=== PATIENT | male | born 1960 | race Caucasian/White ===

== ENCOUNTER 2018-06-07 10:54 | Outpatient (REF) | payer OTHER, SELFPAY ==
[2018-06-07 13:13] LABS: ALT 48 U/L (12-78); AST 29 U/L (15-37); Albumin 4.2 g/dL (3.4-5.0); Alkaline Phosphatase 75 U/L (46-116); Anion Gap 8.5 mmol/L (3-11); BUN 13 mg/dL (7-18); Bilirubin, Total 0.5 mg/dL (0.2-1.0); CO2 28.5 mmol/L (21.0-32.0); Calcium 9.6 mg/dL (8.5-10.1); Chloride 101 mmol/L (98-107); Glucose 102 mg/dL (70-100); Potassium 4.7 mmol/L (3.5-5.1); Sodium 138 mmol/L (136-145); Total Protein 7.7 g/dL (6.4-8.2)
[2018-06-08 11:21] LABS: Hepatitis C Ab w Rflx HCV PCR Negative (NEGAT)
== END 2018-06-07 11:14 ==
LOC: NCHCN 10:54
PROVIDERS: PCP Nurse Practitioner Family; Visit Provider Nurse Practitioner Family
DX: Z00.00 Encounter for general adult medical examination without abnormal findings (principal); I10 Essential (primary) hypertension; Z11.59 Encounter for screening for other viral diseases
CPT/HCPCS: 80053; 86803

== ENCOUNTER 2019-12-05 10:07 | Outpatient (REF) | payer BC, SELFPAY ==
[2019-12-05 20:28] LABS: ALT 50 U/L (16-63); AST 30 U/L (15-37); Albumin 4.2 g/dL (3.4-5.0); Alkaline Phosphatase 83 U/L (46-116); Anion Gap 5.8 mmol/L (3-11); BUN 11 mg/dL (7-18); Bilirubin, Total 0.3 mg/dL (0.2-1.0); CO2 29.2 mmol/L (21.0-32.0); CREATININE 1.03 mg/dL (0.70-1.30); Calcium 9.2 mg/dL (8.5-10.1); Chloride 103 mmol/L (98-107); Glucose 100 mg/dL (74-106); Potassium 4.7 mmol/L (3.5-5.1); Sodium 138 mmol/L (136-145); Total Protein 7.5 g/dL (6.4-8.2)
== END 2019-12-05 10:27 ==
LOC: NCHCN 10:07
PROVIDERS: PCP Nurse Practitioner Family; Visit Provider Nurse Practitioner Family
DX: I10 Essential (primary) hypertension (principal)
CPT/HCPCS: 80053

== ENCOUNTER 2020-07-27 10:58 | Outpatient (CLI) | payer BC, SELFPAY ==
[2020-07-30 22:46] LABS: COVID-19 RT-PCR Result Positive (Negative)
== END 2020-07-27 11:18 ==
PROVIDERS: PCP Nurse Practitioner Family; Visit Provider Nurse Practitioner Family
DX: J06.9 Acute upper respiratory infection, unspecified (principal)
CPT/HCPCS: U0003

== ENCOUNTER 2020-12-10 08:22 | Outpatient (REF) | payer BC, SELFPAY ==
[2020-12-10 14:20] LABS: ALT 59 U/L (16-63); AST 34 U/L (15-37); Albumin 4.3 g/dL (3.4-5.0); Alkaline Phosphatase 76 U/L (46-116); Anion Gap 8.2 mmol/L (3-11); BUN 15 mg/dL (7-18); Bilirubin, Direct 0.1 mg/dL (0.0-0.2); Bilirubin, Total 0.4 mg/dL (0.2-1.0); CO2 28.8 mmol/L (21.0-32.0); CREATININE 1.1 mg/dL (0.70-1.30); Calcium 9.4 mg/dL (8.5-10.1); Chloride 104 mmol/L (98-107); Creatine Kinase 442 U/L (39-308); Glucose 105 mg/dL (74-106); Potassium 5.3 mmol/L (3.5-5.1); Sodium 141 mmol/L (136-145); Total Protein 7.8 g/dL (6.4-8.2)
== END 2020-12-10 08:23 | disposition home or self-care (01) ==
LOC: NCHCN 08:22
PROVIDERS: PCP Nurse Practitioner Family; Visit Provider Nurse Practitioner Family
DX: I10 Essential (primary) hypertension (principal)
CPT/HCPCS: 80053; 80076; 82550

== ENCOUNTER 2020-12-24 10:22 | Outpatient (REF) | payer BC, SELFPAY ==
[2020-12-24 13:51] LABS: BUN 12 mg/dL (7-18); Calcium 9.5 mg/dL (8.5-10.1); Chloride 104 mmol/L (98-107); Creatine Kinase 341 U/L (39-308); Glucose 104 mg/dL (74-106); Potassium 5.1 mmol/L (3.5-5.1); Sodium 140 mmol/L (136-145)
== END 2020-12-24 10:23 | disposition home or self-care (01) ==
LOC: NCHCN 10:22
PROVIDERS: PCP Nurse Practitioner Family; Visit Provider Nurse Practitioner Family
DX: E87.5 Hyperkalemia (principal); R74.8 Abnormal levels of other serum enzymes
CPT/HCPCS: 80048; 82550

== ENCOUNTER 2021-01-21 11:00 | Outpatient (REF) | payer BC, SELFPAY ==
[2021-01-21 15:29] LABS: Calculated LDL 136 mg/dL (<100); Cholesterol 226 mg/dL (<200); HDL Cholesterol 28 mg/dL (40-60); Triglyceride 312 mg/dL (<150)
[2021-01-23 08:29] LABS: Creatine Kinase 244 U/L (39 - 308)
[2021-01-24 13:41] LABS: BB Fraction 1 % (0); MB Fraction 0 % (0); MM Fraction 99 % (100)
== END 2021-01-21 11:01 | disposition home or self-care (01) ==
LOC: NCHCN 11:00
PROVIDERS: PCP Nurse Practitioner Family; Visit Provider Nurse Practitioner Family
DX: E78.5 Hyperlipidemia, unspecified (principal); R74.8 Abnormal levels of other serum enzymes; I10 Essential (primary) hypertension; K30 Functional dyspepsia; E66.9 Obesity, unspecified
CPT/HCPCS: 80061; 82550; 82552

== ENCOUNTER 2021-03-04 13:20 | Outpatient (REF) | payer BC, SELFPAY ==
[2021-03-04 13:44] LABS: ALT 38 U/L (16-63); AST 27 U/L (15-37); Albumin 4.3 g/dL (3.4-5.0); Alkaline Phosphatase 74 U/L (46-116); Anion Gap -0.5 mmol/L (3-11); BUN 15 mg/dL (7-18); Bilirubin, Total 0.4 mg/dL (0.2-1.0); CO2 30.5 mmol/L (21.0-32.0); CREATININE 1.1 mg/dL (0.70-1.30); Calcium 9.4 mg/dL (8.5-10.1); Calculated LDL 106 mg/dL (<100); Chloride 106 mmol/L (98-107); Cholesterol 195 mg/dL (<200); Glucose 106 mg/dL (74-106); HDL Cholesterol 29 mg/dL (40-60); Potassium 4.8 mmol/L (3.5-5.1); Sodium 136 mmol/L (136-145); Total Protein 7.6 g/dL (6.4-8.2); Triglyceride 303 mg/dL (<150)
[2021-03-04 14:02] LABS: Creatine Kinase 237 U/L (39-308)
== END 2021-03-04 13:21 | disposition home or self-care (01) ==
LOC: NCHCN 13:20
PROVIDERS: PCP Nurse Practitioner Family; Visit Provider Nurse Practitioner Family
DX: E78.5 Hyperlipidemia, unspecified (principal); I10 Essential (primary) hypertension
CPT/HCPCS: 80053; 80061; 82550

== ENCOUNTER 2021-04-08 08:00 | Outpatient (REF) | payer BC, SELFPAY ==
[2021-04-08 17:58] LABS: Calculated LDL 128 mg/dL (<100); Cholesterol 209 mg/dL (<200); HDL Cholesterol 31 mg/dL (40-60); Triglyceride 251 mg/dL (<150)
== END 2021-04-08 08:01 | disposition home or self-care (01) ==
LOC: NCHCN 08:00
PROVIDERS: PCP Nurse Practitioner Family; Visit Provider Nurse Practitioner Family
DX: E78.5 Hyperlipidemia, unspecified (principal)
CPT/HCPCS: 80061

== ENCOUNTER 2022-05-26 10:25 | Outpatient (REF) | payer BC, SELFPAY ==
[2022-05-26 16:45] LABS: ALT 45 U/L (16-63); AST 32 U/L (15-37); Albumin 4.5 g/dL (3.4-5.0); Alkaline Phosphatase 77 U/L (46-116); Anion Gap 10.2 mmol/L (3-11); BUN 13 mg/dL (7-18); Bilirubin, Total 0.6 mg/dL (0.2-1.0); CO2 26.8 mmol/L (21.0-32.0); CREATININE 0.9 mg/dL (0.70-1.30); Calcium 9.4 mg/dL (8.5-10.1); Calculated LDL 123 mg/dL (<100); Chloride 102 mmol/L (98-107); Cholesterol 200 mg/dL (<200); Estimated GFR 97.17 (mL/min/1.73m2); Glucose 93 mg/dL (74-106); HDL Cholesterol 37 mg/dL (40-60); Potassium 4.4 mmol/L (3.5-5.1); Sodium 139 mmol/L (136-145); Triglyceride 202 mg/dL (<150)
[2022-05-26 17:11] LABS: Creatine Kinase 255 U/L (39-308)
[2022-05-26 23:57] LABS: PSA, Screening 1.5 ng/mL (<=4.5)
== END 2022-05-26 10:26 | disposition home or self-care (01) ==
LOC: NCHCN 10:25
PROVIDERS: PCP Nurse Practitioner Family; Visit Provider Nurse Practitioner Family
DX: I10 Essential (primary) hypertension (principal); E78.5 Hyperlipidemia, unspecified; R74.8 Abnormal levels of other serum enzymes; K30 Functional dyspepsia; G47.62 Sleep related leg cramps; F52.21 Male erectile disorder; R35.0 Frequency of micturition; Z12.5 Encounter for screening for malignant neoplasm of prostate
CPT/HCPCS: 80053; 80061; 82550; 84153

== ENCOUNTER 2023-08-04 15:02 | Outpatient (REF) | payer BC, SELFPAY ==
[2023-08-04 15:26] LABS: ALT 47 U/L (16-63); AST 29 U/L (15-37); Albumin 4.4 g/dL (3.4-5.0); Alkaline Phosphatase 71 U/L (46-116); Anion Gap 7.1 mmol/L (3-11); BUN 14 mg/dL (7-18); Bilirubin, Total 0.6 mg/dL (0.2-1.0); CO2 29.9 mmol/L (21.0-32.0); Calcium 9.5 mg/dL (8.5-10.1); Calculated LDL 103 mg/dL (<100); Chloride 100 mmol/L (98-107); Cholesterol 207 mg/dL (<200); Glucose 99 mg/dL (74-106); HDL Cholesterol 36 mg/dL (40-60); Potassium 4.3 mmol/L (3.5-5.1); Sodium 137 mmol/L (136-145); Total Protein 7.9 g/dL (6.4-8.2); Triglyceride 342 mg/dL (<150)
[2023-08-04 16:20] LABS: Creatine Kinase 180 U/L (39-308)
[2023-08-04 22:07] LABS: PSA, Diagnostic 1.7 ng/mL (<=4.5)
== END 2023-08-04 15:03 | disposition home or self-care (01) ==
LOC: NCHCN 15:02
PROVIDERS: PCP Nurse Practitioner Family; Visit Provider Nurse Practitioner Family
DX: I10 Essential (primary) hypertension (principal); R35.0 Frequency of micturition
CPT/HCPCS: 80053; 80061; 82550; 84153

== ENCOUNTER 2024-05-27 06:48 | Day surgery (SDC) | payer BC, SELFPAY ==
--- NOTE | 2024-05-26 19:18 | PDOC.DSDIS_ITS ---
Date of service: 05/27/24 Time of Service: 08:41 Discharge Plan Disposition Patient Disposition: Home Condition: Good Discharge Details Reason For Visit: screening colonoscopy Attending Provider: Suresh Stephens Primary Care Provider: Matilde Valderrama Home Meds and New Rx's Prescriptions: Continued omeprazole magnesium [Prilosec OTC] 20 mg tablet,delayed release (DR/EC) 20 mg PO PRN PRN lisinopril 10 MG tablet 40 mg PO DAILY pravastatin 40 mg tablet 40 mg PO DAILY amlodipine 10 mg tablet 10 mg PO DAILY Discontinued polyethylene glycol 3350 17 gram/dose powder 238 g PO ONCE Qty: 238 0RF Rx Instructions: take per colonoscopy instructions bisacodyl [Dulcolax (bisacodyl)] 5 mg tablet,delayed release (DR/EC) 5 mg PO ONCE Qty: 4 0RF Rx Instructions: take per colonoscopy instructions No Action bisacodyl 5 mg tablet,delayed release (DR/EC) PO polyethylene glycol 3350 [ClearLax] 17 gram/dose powder Discharge Instructions Instructions: Diverticulosis Additional Instructions: Balwinder, it was pleasure meeting you today, and I hope you are comfortable during the colonoscopy. Everything went very smoothly. Your prep was excellent negati ve everything totally fine. I did not see any signs of tumors or polyps during the test. Incidentally, you do have a tiny bit of diverticulosis. Diverticula are the individual little weak spots that occur in the colon wall. They are typically described as pockets or pouches. The best approach to take care of them is to stay well-hydrated, maintain a diet that is rich in fiber, and well-balanced, and avoid symptoms of constipation. I will attach a little bit of information here about diverticulosis in general, but it does not really seem to be at anything at all that you need to worry about. With a negative colonoscopy today, he will be good for 10 years. 1. If tolerated, consume a soft, low fiber diet for 1-2 days. 2. Do not drive, drink alcohol, operate machinery, make critical decisions, or do activities that require coordination or balance for 24 hours. 3. Because air was put into your colon during the procedure, expelling air from your rectum (passing gas or farting) is normal. 4. You may not have a bowel movement for 1-3 days because of the colonoscopy prep. This is normal. 5. Go directly to the emergency room if you notice any of the following: Develop chills (warm to touch), or if you have a thermometer and your temperature is above 101 Difficulty breathing or difficultly swallowing Persistent vomiting Severe abdominal pain, other than gas cramps Severe chest pain Black, tarry stools Any bleeding ? exceeding one tablespoon 6. Call your physician if the site where your intravenous was started becomes red, swollen, painful, and warm to touch. 7. Your physician has reviewed your pre-procedure medications. Please continue to take those medications as previously ordered. You will be given specific information/education regarding any changes to your medications before leaving. Activity:: Activity as Tolerated Diet:: As Tolerated Discharge Orders Discharge Orders: Discharge Order (Routine); Ordered 05/26/24 Ordered By: Suresh Stephens DS: Diagnosis Discharge Diagnosis (1) Encounter for screening colonoscopy: Status: Acute Asessment and Plan: Diverticulosis; otherwise negative colonoscopy. Follow-up in 10 years
--- NOTE | 2024-05-26 19:19 | COLE_ITS ---
Date of service: 05/27/24 Time of Service: 08:42 Colonoscopy Report Date of procedure: 05/27/24 Pre-op diagnosis general: screening colonoscopy Post-op diagnosis procedure note: other (Diverticulosis) Procedure: colonoscopy Surgeon: Suresh Stephens Anesthesia Type: General:No Airway Estimated blood loss (mL): 0 Pathology: none sent Complications: None Disposition: same day Indications: Mauri is a 64 year old man who needs a screening colonoscopy Prep: Miralax/Dulcolax Procedure Start Time: 08:23 Procedure End Time: 08:36 Retraction Time: 7 Findings: Scant sigmoid diverticulosis Procedure Description: After the induction of anesthesia, and with the patient in left lateral decubitus position, I began by performing an external anorectal exam.? Perineum and skin were normal, as was the anal verge.? There was no evidence of external hemorrhoids.? Next, I performed a digital rectal exam.? I did not appreciate any abnormal findings.? Next, I advanced a colonoscope into the rectal vault.? I performed retroflexion.? This appeared normal.? Using insufflation, I then advanced the colonoscope beyond the rectal folds and into the sigmoid colon before advancing towards the cecum.? The quality of the prep was outstanding.? The scope was noted to be in the cecum by identification of the ileocecal valve and appendiceal orifice.? I then began withdrawing the colonoscope using repeated irrigation as necessary for full evaluation of the colonic mucosa. There were some occasional sigmoid diverticuli. Once the scope was withdrawn to the level of the rectum, great care was taken to examine portions of the rectal folds.? Finally, the scope was withdrawn and the patient was brought to the same-day surgery recovery unit as the anesthetic wore off. ?The findings and instructions were shared with the patient prior to discharge. [place] Bowel Prep [place] Bowel Prep Right Colon: 3 Left Colon: 3 Transverse Colon: 3 Total Score: 9
[2024-05-27 07:24] VITALS: BP 122/88; PULSE 72; RESP 16; TEMP 36.4; O2SAT 99
[2024-05-27] MEDS: Lactated Ringers 1,000 ML 80 ML IV (07:32)
--- NOTE | 2024-05-27 07:38 | ANES.PREOP_ITS ---
General Info Date of Service Date Performed: 05/27/24 Height: 6 ft Weight: 104.9 kg Body Mass Index (BMI): 31.4 Surgical Procedure: Operation Date: 05/27/24 08:20 Proposed Procedure Side Surgeon ned Stephens MD Meds Allergies and Home Medications Allergies Allergy/AdvReac Type Severity Reaction Status Date / Time Penicillins Allergy Severe Anaphylaxsi Unverified 05/27/24 07:14 s sulfamethoxazole (From Allergy Severe Skin Rash Unverified 05/27/24 07:14 Bactrim) trimethoprim (From Bactrim) Allergy Severe Skin Rash Unverified 05/27/24 07:14 Home Medication ?Medication ?Instructions ?Recorded lisinopril 10 mg tablet 40 mg PO DAILY 09/27/13 amlodipine 10 mg tablet 10 mg PO DAILY 04/04/24 pravastatin 40 mg tablet 40 mg PO DAILY 04/04/24 omeprazole magnesium 20 mg 20 mg PO PRN PRN 05/23/24 tablet,delayed release (Prilosec OTC) bisacodyl 5 mg tablet,delayed mg PO 05/27/24 release polyethylene glycol 3350 17 g 05/27/24 gram/dose oral powder (ClearLax) Current Visit Medications: Current Medications Generic Name Dose Route Start Last Admin Trade Name Freq PRN Reason Stop Dose Admin Hyoscyamine Sulfate 0.125 mg 05/26/24 19:21 Hyoscyamine 0.125 Mg Sl/Oral/Chew SL 06/25/24 19:20 DIRECTED PRN Ringer's Solution 1,000 mls @ 80 mls/hr 05/27/24 06:00 05/27/24 07:32 IV 06/25/24 23:59 80 mls/hr INFUSION KYARA Administration IV Miscellaneous Supplies 1 each 05/27/24 06:00 Iv Access IV 06/25/24 23:59 DIRECTED KYARA Ondansetron HCl 4 mg 05/26/24 19:21 Ondansetron 4 Mg/2 Ml Vial IVP 06/25/24 19:20 Q4H PRN PRN Nausea / Vomiting Sodium Chloride 0 ml 05/27/24 06:00 Normal Saline Flush 10 Ml Syr IV 06/25/24 23:59 PRN PRN Sodium Chloride 0 ml 05/27/24 06:00 Normal Saline 10 Ml Vial IJ 06/25/24 23:59 DIRECTED PRN Sterile Water 0 ml 05/27/24 06:00 Water,Injection,Sterile 10 Ml Vial IJ 06/25/24 23:59 DIRECTED PRN PFSH Active Problems Active Problems: Problem Status Onset Code Encounter for screening colonoscopy Acute Z12.11 MUCKLESHOOT (hard of hearing) Acute H91.90 Medical History Medical History Bilateral hearing loss Erectile dysfunction Obesity Abdominal pain Hyperlipidemia Essential hypertension Surgical History Surgical History History of surgery trauma r/t chain saw injury left. History of colonoscopy Tobacco Smoking/Tobacco Use Status: Former Tobacco Use Alcohol Alcohol Intake: current Alcohol intake frequency: holidays/special occasions only Substance Use Substance use: Never Substance use type: does not use Vital Signs and Lab Results Vital Signs Most Recent Vital Signs in EMR: Most Recent Vital Signs Temp Pulse Resp BP Pulse Ox 36.4 C L 72 16 122/88 99 05/27/24 07:24 05/27/24 07:24 05/27/24 07:24 05/27/24 07:24 05/27/24 07:24 Lab Results Blood Type / Crossmatch: No Data to Display Complete Blood Count: No Data to Display Complete Metabolic Panel: No Data to Display Liver Function Panel: No Data to Display Coagulation Panel: No Data to Display Cardiac Panel: No Data to Display Arterial Blood Gas: No Data to Display Venous Blood Gas: No Data to Display Pancreas Panel: No Data to Display Thyroid Panel: No Data to Display Infectious Disease: No Data to Display Blood Cultures: No Data to Display Toxicology Panel: No Data to Display Anesthesia Assessment and Plan Anesthesia History Personal History: No History of Anesthesia Complications Family History: No Family History of Anesthesia Complications Exercise Tolerance Exercise Tolerance: Metabolic Equivalents>4 Cardiac & Pulmonary Exam Cardiac Exam: Normal S1/S2 Heart Sounds Pulmonary Exam: Clear Bilateral Breath Sounds Implantable Cardiac Device Does patient have a Pacemaker or an ICD?: No Airway Exam Known Difficult Airway: No Mallampati Class: 3 Mouth Opening: Narrow (< 3cm) Thyromental Distance: Less than 3 cm Neck Range of Motion: Limited ROM Neck Circumference: Thick Teeth Condition: Normal Dentition ASA Classification ASA Score: ASA 2 Emergency Case?: No NPO Status NPO Status: NPO Clears >2 hours, Solids >8 hours Anesthesia Plan Resuscitation Status: Full Code Anesthesia Technique: General Anesthesia Airway Planned: Natural Airway Monitors Used: Standard Monitors Preoperative Comments:: 64 yo male for screening colo. Sig PMHx: HTN (lisinopril, amlodipine. Well controlled, 128/80s at home), GERD (omeprazole. takes once a week. feels good today), MUCKLESHOOT, former smoker, occ EtOH.
[2024-05-27 07:41] VITALS: BMI 31.4
[2024-05-27 08:41] VITALS: BP 106/84; PULSE 75; RESP 18; TEMP 36.6; O2SAT 95
[2024-05-27 09:00] VITALS: BP 122/88; PULSE 68; RESP 18; TEMP 36.5; O2SAT 96
--- NOTE | 2024-05-27 09:28 | W.ANESPOSTOP ---
Postoperative Evaluation Date, Time and Location Date Performed: 05/27/24 Time Performed: 09:00 Patient Location: Day Surgery Unit Vital Signs Most Recent Imported Vital Signs: Most Recent Vital Signs Temp Pulse Resp BP Pulse Ox 36.5 C 68 18 122/88 96 05/27/24 09:00 05/27/24 09:00 05/27/24 09:00 05/27/24 09:00 05/27/24 09:00 Pain Score Most Recent Pain Score: Most Recent Pain Score Pain Level 0 05/27/24 09:00 Assessment Mental Status: Awake (Alert & Oriented to Patient Baseline) Airway and Respiratory Function: Patent airway with normal (patient baseline) respiratory exam Cardiovascular Function: Hemodynamically Stable Hydration Status: Adequately Hydrated Nausea & Vomiting: No Nausea or Vomiting Pain: Pt. Denies Any Pain Peripheral Nerve Block: Patient did not receive a nerve block
== END 2024-05-27 09:05 | disposition home or self-care (01) ==
LOC: SUR 06:48
PROVIDERS: PCP Nurse Practitioner Family; Visit Provider Surgery
PROC: 0DJD8ZZ Inspection of Lower Intestinal Tract, Via Natural or Artificial Opening Endoscopic (ICD-10-PCS; CPT 45378; principal; 2024-05-27 08:15)
DX: Z12.11 Encounter for screening for malignant neoplasm of colon (principal); K57.30 Diverticulosis of large intestine without perforation or abscess without bleeding; I10 Essential (primary) hypertension; K21.9 Gastro-esophageal reflux disease without esophagitis; Z87.891 Personal history of nicotine dependence
CPT/HCPCS: 45378; J2704

== ENCOUNTER 2024-08-05 11:52 | Outpatient (CLI) | payer BC, SELFPAY ==
[2024-08-05 09:32] LABS: ALT 35 U/L (16-63); AST 24 U/L (15-37); Alkaline Phosphatase 89 U/L (46-116); Anion Gap 4.7 mmol/L (3-11); BUN 15 mg/dL (7-18); Bilirubin, Total 0.39 mg/dL (0.2-1.0); CO2 31.3 mmol/L (21.0-32.0); CREATININE 1.1 mg/dL (0.70-1.30); Calcium 9.2 mg/dL (8.5-10.1); Calculated LDL 133 mg/dL (<100); Chloride 104 mmol/L (98-107); Cholesterol 215 mg/dL (<200); Estimated GFR 75.43 (mL/min/1.73m2); Glucose 115 mg/dL (74-106); HDL Cholesterol 44 mg/dL (40-60); Potassium 4.9 mmol/L (3.5-5.1); Sodium 140 mmol/L (136-145); Total Protein 7.9 g/dL (6.4-8.2); Triglyceride 194 mg/dL (<150)
[2024-08-05 09:45] LABS: Creatine Kinase 115 U/L (39-308)
[2024-08-05 18:07] LABS: PSA, Screening 2.6 ng/mL (<=4.5)
== END 2024-08-05 11:53 | disposition home or self-care (01) ==
LOC: LBO 11:53
PROVIDERS: PCP Nurse Practitioner Family; Visit Provider Nurse Practitioner Family
DX: I10 Essential (primary) hypertension (principal); E78.5 Hyperlipidemia, unspecified
CPT/HCPCS: 36415; 80053; 80061; 82550; 84153

== ENCOUNTER 2025-06-26 09:23 | Outpatient (REF) | payer BC, SELFPAY ==
[2025-06-26 15:45] LABS: ALT 42 U/L (10-49); AST 33 U/L (<34); Albumin 4.8 g/dL (3.4-5.0); Alkaline Phosphatase 84 U/L (46-116); Anion Gap 9.4 mmol/L (3-11); BUN 15 mg/dL (9-23); Bilirubin, Total 0.40 mg/dL (0.2-1.2); CO2 27.6 mmol/L (20.0-31.0); Calcium 9.8 mg/dL (8.3-10.6); Chloride 104 mmol/L (98-107); Cholesterol 203 mg/dL (<200); Glucose 97 mg/dL (74-106); HDL Cholesterol 48 mg/dL (>40); Potassium 4.6 mmol/L (3.5-5.1); Sodium 141 mmol/L (136-145); Total Protein 7.9 g/dL (5.7-8.2)
[2025-06-26 21:37] LABS: PSA, Diagnostic 2.5 ng/mL (<=4.5)
== END 2025-06-26 09:24 | disposition home or self-care (01) ==
LOC: NCHCN 09:23
PROVIDERS: PCP Nurse Practitioner Family; Visit Provider Nurse Practitioner Family
DX: I10 Essential (primary) hypertension (principal); R35.0 Frequency of micturition
CPT/HCPCS: 80053; 80061; 84153